=== PATIENT | female | born 1975 | race African-American/Black ===

== ENCOUNTER 2023-06-08 11:02 | Emergency (ER) | payer OTHER, SELFPAY ==
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
[2023-06-08 11:18] VITALS: BP 146/102; PULSE 85; RESP 18; TEMP 36.7; O2SAT 98
== END 2023-06-08 11:56 | disposition home or self-care (01) ==
PROVIDERS: Emergency Provider Registered Nurse
DX: S40.021A Contusion of right upper arm, initial encounter (principal); S80.02XA Contusion of left knee, initial encounter; S20.02XA Contusion of left breast, initial encounter; Y09 Assault by unspecified means; Y99.0 Civilian activity done for income or pay
CPT/HCPCS: 99203; G0463

== ENCOUNTER 2023-06-12 08:14 | Emergency (ER) | payer OTHER, SELFPAY ==
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
[2023-06-12 08:21] VITALS: BP 140/77; PULSE 80; RESP 16; TEMP 35.9; O2SAT 100
== END 2023-06-12 08:38 | disposition home or self-care (01) ==
PROVIDERS: Emergency Provider Nurse Practitioner Family
DX: S20.211A Contusion of right front wall of thorax, initial encounter (principal); S40.021A Contusion of right upper arm, initial encounter; X58.XXXA Exposure to other specified factors, initial encounter; Z86.16 Personal history of COVID-19
CPT/HCPCS: 99212; G0463